=== PATIENT | male | born 1945 | race Caucasian/White ===

== ENCOUNTER → 2017-09-08 | Outpatient (CLI) | payer MEDICARE | END | disposition home or self-care (01) | LOC: KCIC CT 12:30 | DX: R42 Dizziness and giddiness (principal); R90.82 White matter disease, unspecified; Z91.81 History of falling | CPT/HCPCS: 70450 ==

== ENCOUNTER → 2017-09-29 | Outpatient (CLI) | payer MEDICARE ==
[2017-09-29 12:38] LABS: VITAMIN-B12 409 pg/mL (247-911)
[2017-09-29 12:40] LABS: CREATINE KINASE 213 U/L (39-308)
[2017-09-29 12:42] LABS: THYROID STIM HORMONE (TSH) 2.941 uIU/mL (0.358-3.74)
[2017-09-29 12:42] LABS: FREE T4 0.79 ng/dL (0.76-1.46)
== END | disposition home or self-care (01) ==
LOC: LAB 11:38
DX: R42 Dizziness and giddiness (principal); R26.81 Unsteadiness on feet; I11.0 Hypertensive heart disease with heart failure; I50.22 Chronic systolic (congestive) heart failure; E11.9 Type 2 diabetes mellitus without complications; E78.5 Hyperlipidemia, unspecified; Z87.891 Personal history of nicotine dependence; Z79.899 Other long term (current) drug therapy
CPT/HCPCS: 36415; 82306; 82550; 82607; 84439; 84443

== ENCOUNTER → 2017-10-08 | Outpatient (CLI) | payer MEDICARE ==
[2014-05-22 10:25] VITALS: BP 135/74
[~2017-10-08] MED LIST: APIX5TAB PO; ASCO10002 PO; ASPI-630 PO; ATOR40TA59 PO; BUSP10TA PO; CARV6.252 PO; CHOL100014 PO; DOXE100C PO; EXEN5PEN2 SQ; FURO-69 PO; GARL1CAP3 PO; INSU100I13 SQ; INSU100V9 SQ; LORA10TA3 PO; LOSA50TA6 PO; METF10003 PO; SERT100T8 PO
--- NOTE | 2017-10-08 17:12 | RAD ---
Exam : Carotid Duplex with Grayscale Ultrasound and Spectral and Color Doppler Analysis 10/08/2017 5:05 PM Clinical Indications: dizziness Comparison study: None available. PQRS Compliance Statement - Stenosis calculations for CT, MR and conventional angiography are based upon measurement of the distal ICA diameter in accordance with the NASCET methodology. Stenosis calculations for carotid ultrasound studies are derived from validated velocity criteria which are known to correlate with the NASCET methodology. Findings: The common, internal and external carotid arteries were examined by grayscale, color and spectral Doppler ultrasound. Short plaquing along the bilateral carotid bulbs is noted. Visualization of the carotid bulbs and proximal ICAs is somewhat limited. Right vertebral flow is antegrade. Left vertebral artery is nonvisualized. The following are the velocities and ratios in the carotid arteries on both sides: RIGHT ICA PV: 61 cm/sec RIGHT CCA PV: 58cm/sec RIGHT ICA ED: 16cm/sec RIGHT IC/CCPV: Less than 2 RIGHT VERTEBRAL: antegrade flow LEFT ICA PV: 78cm/sec LEFT CCA PV: 72 cm/sec LEFT ICA ED: 20cm/sec LEFT IC/CCPV: Less than 2 LEFT VERTEBRAL: Nonvisualized <50% ICA Stenosis: PSV < 125cm/s (EDV < 40cm/s; SVR < 2.0) 50-69% ICA Stenosis: PSV < 125-229cm/s (EDV 40-99cm/s; SVR 2.0-3.9) >70% ICA Stenosis: PSV > 230cm/s (EDV >100cm/s; SVR >4.0) Impression: Multifocal atherosclerotic vascular disease most prominent in the carotid bulbs, with less than 50 percent stenosis of the bilateral internal carotid arteries by ultrasonographic criterion. Left vertebral artery is not visualized. Electronically signed by: Jone Khan MD (10/08/2017 5:08 PM) [id number]
== END | disposition home or self-care (01) ==
LOC: US 07:45
PROVIDERS: ATTEND Psychiatry & Neurology Neurology
DX: I65.23 Occlusion and stenosis of bilateral carotid arteries (principal); R26.81 Unsteadiness on feet; I11.0 Hypertensive heart disease with heart failure; I50.9 Heart failure, unspecified; I25.10 Atherosclerotic heart disease of native coronary artery without angina pectoris; E11.9 Type 2 diabetes mellitus without complications; E78.5 Hyperlipidemia, unspecified; J45.909 Unspecified asthma, uncomplicated; Z87.891 Personal history of nicotine dependence
CPT/HCPCS: 93880

== ENCOUNTER → 2017-10-27 | Outpatient (CLI) | payer MEDICARE ==
[2014-05-22 10:25] VITALS: BP 135/74
[~2017-10-27] MED LIST changes: -LOSA50TA6 PO; +LOSA50TA7 PO; -METF10003 PO; +METF10007 PO
[2017-10-27 12:31] LABS: CALCIUM 9.4 mg/dL (8.5-10.1); CREATININE 1.4 mg/dL (0.7-1.3); GFR 50.2; POTASSIUM 4.4 mmol/L (3.5-5.1); TOTAL BILIRUBIN 1.4 mg/dL (0.2-1.0); TOTAL PROTEIN 7.9 g/dL (6.4-8.2)
== END | disposition home or self-care (01) ==
LOC: LAB 11:45
PROVIDERS: ATTEND Psychiatry & Neurology Neurology
DX: I65.02 Occlusion and stenosis of left vertebral artery (principal); I11.0 Hypertensive heart disease with heart failure; I50.22 Chronic systolic (congestive) heart failure; E11.9 Type 2 diabetes mellitus without complications; E78.00 Pure hypercholesterolemia, unspecified; J45.909 Unspecified asthma, uncomplicated; I25.10 Atherosclerotic heart disease of native coronary artery without angina pectoris; Z87.891 Personal history of nicotine dependence; Z79.4 Long term (current) use of insulin; Z91.81 History of falling
CPT/HCPCS: 36415; 80053

== ENCOUNTER → 2021-01-23 | Outpatient (CLI) | payer MEDICARE ==
[2014-05-22 10:25] VITALS: BP 135/74
[~2021-01-23] MED LIST changes: +ASCO100019 PO; -ASCO10002 PO; +CARV6.2511 PO; -CARV6.252 PO; +CONTRAST GIVEN. MC PRN; +IOHEXOL 300 MG/ML 100ML VIAL. IV ONE; +LOSA-73 PO; -LOSA50TA7 PO; +SERT-268 PO; -SERT100T8 PO
--- NOTE | 2021-01-23 11:46 | RAD ---
CT neck with contrast dated 01/23/2021. No comparison available. CLINICAL INDICATION: Left-sided neck mass. TECHNIQUE: Contiguous axial imaging the soft tissue neck performed following the intravenous administration of 7 0 cc Omnipaque 300. One or more of the following individualized dose reduction techniques were utilized for this examinat ion: 1. Automated exposure control 2. Adjustment of the mA and/or kV according to patient size 3. Use of iterative reconstruction technique FINDINGS: Parotid and submandibular glands are symmetric. No evidence of mass. No significant cervical chain ly mphadenopathy. Thyroid gland unremarkable. The airway is relatively collapsed and not well evaluated. No apparent mucosal lesion. Parapharyngeal fat planes are preserved. Limited imaged portions the brain parenchyma unremarkable. Paranasal sinus es and mastoid air cells are clear. Atherosclerotic calcifications of the bilateral carotid bifurcation. Suspected moderate to high-grade narrowing of the proximal left ICA with mild narrowing of the proximal right ICA. Limited imaged por tions of the upper chest are unremarkable. Mild to moderate emphysema. No significant bony abnormalit y. Multilevel spondylosis. IMPRESSION: 1. No acute abnormalities soft tissue neck. No apparent soft tissue mass or adenopathy. 2. Atherosclerotic changes of the bilateral carotid bifurcation. There is suspected moderate to high- grade narrowing of the proximal left ICA with mild narrowing of the proximal right ICA. Carotid Doppl er could better evaluate. 3. Emphysema. Electronically signed by: Man George MD (01/23/2021 11:44 AM) [id number]
== END ==
LOC: CT 07:27
PROVIDERS: ATTEND Family Medicine
DX: I65.23 Occlusion and stenosis of bilateral carotid arteries (principal); J43.9 Emphysema, unspecified
CPT/HCPCS: 70491; Q9967

== ENCOUNTER → 2021-02-04 | Outpatient (CLI) | payer MEDICARE ==
[2014-05-22 10:25] VITALS: BP 135/74
[~2021-02-04] MED LIST changes: -CONTRAST GIVEN. MC PRN; -IOHEXOL 300 MG/ML 100ML VIAL. IV ONE
--- NOTE | 2021-02-04 15:39 | RAD ---
Site ID: [id number] EXAMINATION: US DPLX CAROTID BILAT. Technique: Carotid arterial vascular ultrasound performed with gordon scale and color doppler, wavefor m interrogation and flow velocity evaluation. INDICATION: 75 years Male Reason: STENOSIS OF CAROTID ARTERY Comparison October 08, 2017 Findings: Color Doppler demonstrates patency of the common, internal, and external carotid arteries bilaterally . There is antegrade flow in the vertebral arteries demonstrated. Grayscale images demonstrate scattered atherosclerotic plaque along the carotid arteries bilaterally. Peak systolic velocity in the right ICA is 48 cm/s on the left side is 93 cm/s. ICA/CCA ratio is 1.0 on the right and 1.2 on the left. NOTE: Method of estimating the degree of stenosis is based on velocity criteria as defined by the Soc iety of Radiologists in Ultrasound Consensus Conference Radiology 2003. IMPRESSION: Atherosclerotic plaque at the carotid bifurcation is seen bilaterally with estimated degr ee of stenosis less than 50% on both sides. Electronically signed by: Vincenzo Gibson MD (02/04/2021 3:36 PM) [id number]
== END ==
LOC: US 11:32
PROVIDERS: ATTEND Family Medicine
DX: I65.23 Occlusion and stenosis of bilateral carotid arteries (principal)
CPT/HCPCS: 93880